=== PATIENT | male | born 1965 | race Caucasian/White ===

== ENCOUNTER 2017-03-03 13:47 | Emergency (ER) | payer BC ==
--- NOTE | 2017-03-03 15:50 | DIAGNOSTIC IMAGING REPORT ---
PROCEDURE: XR FINGER - LEFT (thumb). INDICATION: TRAUMA/INJURY TECHNIQUE: Four views. COMPARISON: None. FINDINGS: Mild degenerative change of the left first metacarpal phalangeal joint and left first interphalangeal joint. The rest of the osseous structures and joint spaces are normal. IMPRESSION: 1. Mild degenerative changes of the left thumb.
--- NOTE | 2017-03-03 16:10 | ED NURSING NOTES ---
Clinical Report - Nurses [facility] [address] [place] [address] 03/03/2017 13:50 Patient: CHANTAL DICKERSON [facility]#: [id number] TRIAGE Triage time 13:51 Chris 11 2016. Acuity: LEVEL 3. Chief Complaint: INJURY TO LEFT HAND. INJURY TO THE LEFT THUMB WITH PARTIAL AMPUTATION. Alert. JODI COMA SCORE: [place] Coma Scale: 15- eyes open spontaneously (4); best verbal response- oriented x 4 (5); best motor response- obeys commands (6). --13:57 Issa Rush R.N. 13:58 03/03/17. BP: 126/72. HR: 88. RR: 16. O2 saturation: 97% on room air. Temp: 99.5 F (oral). Pain level now: 07/02. --14:02 Issa Rush R.N. Weight: 81.6 kg stated. Height/Length: 68 inches Per Patient. BMI: 27.4. --13:57 Issa Rush R.N. Medications Lovenox Subcutaneous 120, daily. --13:53 Issa Rush R.N. Medication/allergy information source: the patient. --13:57 Issa Rush R.N. Allergies No Known Drug Allergy. --13:53 Issa Rush R.N. History Arrived by private vehicle. Historian: patient. Accompanied by spouse. Primary physician (DILAN). ( (L) Thumb Laceration from a skill saw.). This occurred (about 20 minutes ago). He sustained a laceration. 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 PAST MEDICAL HX: Tetanus status: more than 5 years ago. SOCIAL HX: Former smoker. No alcohol use or drug use. No infectious disease exposure. ABUSE ASSESSMENT: No report of abuse. FALL RISK ASSESSMENT: Fall risk assessment completed. No fall risk identified. NUTRITIONAL RISK ASSESSMENT: The nutritional risk assessment revealed no deficiencies. FUNCTIONAL ASSESSMENT: Functional assessment: no impairments noted. LEARNING NEEDS ASSESSMENT: The learning needs assessment revealed no barriers. SKIN INTEGRITY ASSESSMENT: Skin integrity risk assessment completed. No skin integrity risk identified. --13:57 Issa Rush R.N. PROBLEMS: Prostate Cancer. Deep Vein Thrombosis. Viral Disease. --13:54 Issa Rush R.N. Interventions ID band on patient. To treatment room. --13:57 Issa Rush R.N. PHYSICAL ASSESSMENT Ambulatory to room. GENERAL / NEURO / PSYCH: Oriented X 4. Appears in pain. EXTREMITIES: Capillary refill is less than 2 seconds in the extremities. Neuro-vascular status intact to the extremity. Left hand: (L Thumb). SKIN: Skin is warm and dry. ( L Thumb Laceration). --14:03 Issa Rush R.N. NURSING PROGRESS NOTES Reassurance given. Patient identifiers checked. Call light placed in reach. Side rails up x 1. Bed placed in lowest position. Brakes of bed on. Patient ready for evaluation- chart flagged and PA notified. --14:03 Issa Rush R.N. Wound cleansed with sterile saline. --14:13 Houston Espinoza Tech1 Wound cleansed with sterile saline. ( Would cleansed again per patient's request.). --14:43 Houston Espinoza ER [employer] 14:45 03/03/2017 Site #1 started via IV in the right hand with an 22g angiocath, with aseptic technique and good blood return; one attempt. Blood drawn: rainbow set. Labeled in the presence of the patient and sent to the lab. Saline lock flushed with 1 mL saline. --14:59 Sandra Plummer R.N. 14:50 03/03/2017 Started bag #1 250 mL IV Fluids IV NS (Saline); at 100 mL/hr over 2 hour(s) via site #1 --15:24 Sandra Plummer R.N. 15:08 03/03/2017 Dilaudid (HYDROmorphone HCl PF) IVP 1 mg given over 1 minute(s) via site #1. IV patency established. IV site checked: no pain, redness, or swelling. IV flushed thoroughly pre- and post-medication administration. IVP given by RN. --15:21 Sandra Plummer R.N. 15:10 03/03/2017 ancef * IVPB 1Gm Running 1 gram x 2 seperate bags for total of 2Gm --15:26 Sandra Plummer R.N. 15:33 03/03/2017 Ancef IVPB Bag Change: bag #1 infused. Total amount infused: 50. STARTED bag #2 (50 mL) at 150 mL/hr. IV patency established. IV site checked: no pain, redness, or swelling. IV flushed thoroughly. --15:33 Sandra Plummer R.N. 15:55 03/03/2017 Anc IVPB Discontinued: bag #2 infused. Total amount infused: 50 mL. IV patency established. IV site checked: no pain, redness, or swelling. IV flushed thoroughly. --15:57 Sandra Plummer R.N. late entry -16:00. WOUND REPAIR: Wound repair performed by PA. Assisted by one tech. The wound is located on the (lt thumb). The wound is linear. Preparation: suture tray set-up with lidocaine. Wound cleansed per PA with sterile saline and irrigated per PA with sterile saline using a syringe. Procedure: wound repaired with sutures (1 suture packet used). Total time of assist / procedure: 15 minutes. --19:33 Sandra Plummer R.N. 16:15. Applied clean dressing consisting of Tegaderm, following the application of antibiotic ointment (bacitracin). Secured with tape. --16:37 Doug Roland 16:15. Thumb spica fiberglass upper extremity splint applied to left hand by tech. Distal pulses intact, sensation intact and motor within normal limits. --16:38 Doug Roland 16:05 03/03/2017 Dilaudid (HYDROmorphone HCl PF) IVP 2 mg given over 1 minute(s) via site #1. IV patency established. IV site checked: no pain, redness, or swelling. IV flushed thoroughly pre- and post-medication administration. IVP given by RN. --19:38 Sandra Plummer R.N. 16:10 03/03/2017 Site #1 removed upon discharge. Bandaid applied. --19:40 Sandra Plummer R.N. 16:10 03/03/2017 IV Fluids IV NS Discontinued: bag #1 STOPPED. Total amount infused: 150 mL. IV patency established. IV site checked: no pain, redness, or swelling. IV flushed thoroughly. --19:39 Sandra Plummer R.N. 16:10 03/03/2017 IV Saline Lock Drip IV Discontinued. Total amount infused: 0 mL. IV patency established. IV site checked: no pain, redness, or swelling. IV flushed thoroughly. --19:39 Sandra Plummer R.N. DISPOSITION / DISCHARGE 16:20. Condition at departure: improved and stable. No learning barriers present. Discharge instructions provided and reviewed with the patient and spouse. Reviewed medication(s) (keflex, bactrim, percocet). Patient and spouse verbalized understanding. Written instructions provided in Dutch. The patient was discharged home and accompanied by spouse. He left the Emergency Department ambulatory and via private vehicle. Spouse driving. --19:37 Sandra Plummer R.N. 16:20 03/03/17. BP: 139/87. HR: 84. RR: 18. O2 saturation: 98%. Temp: deferred. Pain level now: 03/02. --19:37 Sandra Plummer R.N. 16:20. Reviewed wound care and splint care instructions. --19:37 Sandra Plummer R.N. Locked/Released at 03/03/2017 19:42 by Sandra Plummer R.N.
--- NOTE | 2017-03-03 16:10 | ED CLINICAL REPORT ---
Clinical Report - Physicians/Mid Levels [facility] [address] [place] [address] 03/03/2017 13:50 [id number] Time Seen: 14:00 Mar 03 2017. Arrived- By private vehicle. Historian- patient. HISTORY OF PRESENT ILLNESS Chief Complaint: Injury to the left thumb. The injury happened just prior to arrival. The patient sustained a laceration and crush injury. Occurred at home. Patient is experiencing moderate pain. Patient denies injury to the head or neck. ( left thumb laceration injured from a chainsaw prior to arrival. Patient is right-hand dominant no prior major injuries to the left thumb. Pain with movement. Denies loss of sensation. No active bleeding.). REVIEW OF SYSTEMS The patient sustained a laceration. He has had swelling, and weakness. All systems otherwise negative, except as recorded above. PAST HISTORY The patient's dominant hand is the right. He has not had a prior injury to the same area. Tetanus immunization status is up-to-date. Problems: Prostate Cancer. Deep Vein Thrombosis. Viral Disease. Additional Surgeries: Shoulder Surgery. Medications: Lovenox Subcutaneous 120, daily. Allergies: No Known Drug Allergy. SOCIAL HISTORY Former smoker. No alcohol use or drug use. ADDITIONAL NOTES The nursing notes have been reviewed. PHYSICAL EXAM Vital Signs: 03/03/2017 13:58 BP: 126/72. HR: 88. RR: 16. O2 saturation: 97%. Temp: 99.5 F. Pain level now: 1010. Appearance: Alert. Head: Head atraumatic. CVS: Normal heart rate and rhythm. Heart sounds normal. Respiratory: No respiratory distress. Breath sounds normal. Extremities: Anatomic snuffbox, right arm: No tenderness or swelling. Right thumb: subcutaneous 2.0 cm laceration of the dorsal aspect and proximal phalanx. Limited movement secondary to weakness (diminished extension). No puncture wound or deformity. Not localized to the thumb tip. No subungual hematoma or amputation present. Tip of right thumb. No tenderness or swelling. No wrist injury. Neuro, Vascular and Tendons: Vascular status intact. Functional tendon deficit. Neuro: Oriented X 3. LABS, X-RAYS, AND EKG Lt UE Digits X-ray: (IMPRESSION: 1. Mild degenerative changes of the left thumb. Electronically Final signed by:Jalen Paez MD 03/03/2017 3:45:09 PM). PROGRESS AND PROCEDURES PROCEDURES (Left thumb spica: 15:30, ns intact, fiberglass, short.). Laceration Repair: Time: 1515. Location: (left thumb). Time-out completed immediately before the procedure. Length: 3. Complexity: simple (local anesthesia used and sutured). Wound involving fascia. Wound is clean. Neuro/vascular/tendon status: motor deficit present distally. Tendon deficit present. Tendon injury and laceration present. No vascular deficit distally. Anesthesia provided by digital block using 0.25% Marcaine. Prepped with Betadine. Wound explored, cleansed and irrigated. Subcutaneous closure: interrupted 5-0 (3 non absorb). Post-procedure: he is stable and there are no complications. Bleeding is controlled and neuro-vascular status is intact distal to the wound. Dressing applied. Tetanus immunization up-to-date. Course of Care: Discussed case with DR. Noel, ortho, who prefers patient see specialized hand Attempted to phone patricia velasquez hand surgeon [employer]. Discussed case with DR. French, inspector [employer] plastics/ hand will see patient in office. Pt given 2 gm IV ancef and outpatient keflex/ bactrim. Pt with no signs of acute infection, however is on chemo, as well as opne wound with tendon laceration. 03/03/2017 13:58 BP: 126/72. HR: 88. RR: 16. O2 saturation: 97%. Temp: 99.5 F. Pain level now: 1010. Patient is stable. The patient's symptoms are unchanged. Patient/family counseled. Disposition: Discharged. CLINICAL IMPRESSION Complete tendon laceration of the left extensor of the thumb. No infection present or foreign body present. INSTRUCTIONS Apply ice. Elevate affected areas above chest level. Protect wound and keep wound area clean. (Leave splint in place). Limit use of your left hand (LIGHT DUTY UNTIL RELEASED). (Call DR. French on Saturday first [phone]). Prescription Medications: Cephalexin 500 mg: take 1 capsule orally every 8 hours for 10 days. No refill. Oxycodone/APAP 5 mg/325 mg: take 1 tablet orally every 6 hours as needed for pain. Dispense twenty (20). Bactrim take 1 tablet orally every 12 hours for 10 days. No refill. Substitution is not permissible. (Bactrim DS, GENERIC OK) Follow-up: Follow up with a specialist. Understanding of the discharge instructions verbalized by patient. (Electronically signed by Savana Christine P.A.-C 03/03/2017 19:22)
--- NOTE | 2017-03-03 16:10 | ED ORDER SUMMARY ---
..... Patient: CHANTAL DICKERSON OrderSheet [facility] VisitID: [id number] [place] [address] 51y, M Registration Date/Time: 03/03/2017 ORDER SHEET Weight: 81.6 kg (stated) Allergies: No Known Drug Allergy GENERAL ORDERS: Finger Left (1) Urgent (13:59 03/03/2017 EKoroleva P.A.-C) (Ack 14:00 KHoerner) (14:18 KHoerner) Splint (UE) (Left) (Thumb Spica) (15:15 03/03/2017 EKoroleva P.A.-C) (19:40 DDean R.N.) MEDICATION ORDERS: IV FLUIDS: IV Saline Lock (13:59 03/03/2017 EKoroleva P.A.-C) (Ack 15:02 DDean R.N.) (15:25 DDean R.N.) Ancef IV 2 gm/100mL (NOW) (14:28 03/03/2017 EKoroleva P.A.-C) (Ack 15:02 DDean R.N.) (15:26 DDean R.N.) Dilaudid IV 1 mg (HIGH ALERT MEDICATION, NOW) (15:06 03/03/2017 EKoroleva P.A.-C) (15:21 DDean R.N.) IV NS : initial bolus none -, then 100 for X2 (250cc bag, at 100cc/hr) (15:22 03/03/2017 DDean R.N. verbal order read back to EKoroleva P.A.-C) (15:24 DDean R.N.) Dilaudid IV 2 mg (HIGH ALERT MEDICATION, NOW) (16:02 03/03/2017 EKoroleva P.A.-C) (19:38 DDean R.N.) ORDER SHEET NOTES: [Electronically signed by Savana Christine PRahARah-C (19:22 03/03/2017)] [Electronically signed by Sandra Plummer R.N. (19:42 03/03/2017)] [Electronically locked/signed by Sandra Plummer R.N. (19:42 03/03/2017)]
--- NOTE | 2017-03-03 16:10 | ED ORDER SUMMARY ---
..... Patient: CHANTAL DICKERSON OrderSheet [facility] VisitID: [id number] [place] [address] 51y, M Registration Date/Time: 03/03/2017 ORDER SHEET Weight: 81.6 kg (stated) Allergies: No Known Drug Allergy GENERAL ORDERS: Finger Left (1) Urgent (13:59 03/03/2017 EKoroleva P.A.-C) (Ack 14:00 KHoerner) (14:18 KHoerner) Splint (UE) (Left) (Thumb Spica) (15:15 03/03/2017 EKoroleva P.A.-C) (19:40 DDean R.N.) MEDICATION ORDERS: IV FLUIDS: IV Saline Lock (13:59 03/03/2017 EKoroleva P.A.-C) (Ack 15:02 DDean R.N.) (15:25 DDean R.N.) Ancef IV 2 gm/100mL (NOW) (14:28 03/03/2017 EKoroleva P.A.-C) (Ack 15:02 DDean R.N.) (15:26 DDean R.N.) Dilaudid IV 1 mg (HIGH ALERT MEDICATION, NOW) (15:06 03/03/2017 EKoroleva P.A.-C) (15:21 DDean R.N.) IV NS : initial bolus none -, then 100 for X2 (250cc bag, at 100cc/hr) (15:22 03/03/2017 DDean R.N. verbal order read back to EKoroleva P.A.-C) (15:24 DDean R.N.) Dilaudid IV 2 mg (HIGH ALERT MEDICATION, NOW) (16:02 03/03/2017 EKoroleva P.A.-C) (19:38 DDean R.N.) ORDER SHEET NOTES: [Electronically signed by Savana Christine PaRhARah-C (19:22 03/03/2017)] [Electronically signed by Sandra Plummer R.N. (19:42 03/03/2017)] [Electronically locked/signed by Sandra Plummer R.N. (19:42 03/03/2017)]
--- NOTE | 2017-03-03 16:10 | ED CLINICAL REPORT ---
Clinical Report - Physicians/Mid Levels [facility] [address] [place] [address] 03/03/2017 13:50 [id number] Time Seen: 14:00 Mar 03 2017. Arrived- By private vehicle. Historian- patient. HISTORY OF PRESENT ILLNESS Chief Complaint: Injury to the left thumb. The injury happened just prior to arrival. The patient sustained a laceration and crush injury. Occurred at home. Patient is experiencing moderate pain. Patient denies injury to the head or neck. ( left thumb laceration injured from a chainsaw prior to arrival. Patient is right-hand dominant no prior major injuries to the left thumb. Pain with movement. Denies loss of sensation. No active bleeding.). REVIEW OF SYSTEMS The patient sustained a laceration. He has had swelling, and weakness. All systems otherwise negative, except as recorded above. PAST HISTORY The patient's dominant hand is the right. He has not had a prior injury to the same area. Tetanus immunization status is up-to-date. Problems: Prostate Cancer. Deep Vein Thrombosis. Viral Disease. Additional Surgeries: Shoulder Surgery. Medications: Lovenox Subcutaneous 120, daily. Allergies: No Known Drug Allergy. SOCIAL HISTORY Former smoker. No alcohol use or drug use. ADDITIONAL NOTES The nursing notes have been reviewed. PHYSICAL EXAM Vital Signs: 03/03/2017 13:58 BP: 126/72. HR: 88. RR: 16. O2 saturation: 97%. Temp: 99.5 F. Pain level now: 1010. Appearance: Alert. Head: Head atraumatic. CVS: Normal heart rate and rhythm. Heart sounds normal. Respiratory: No respiratory distress. Breath sounds normal. Extremities: Anatomic snuffbox, right arm: No tenderness or swelling. Right thumb: subcutaneous 2.0 cm laceration of the dorsal aspect and proximal phalanx. Limited movement secondary to weakness (diminished extension). No puncture wound or deformity. Not localized to the thumb tip. No subungual hematoma or amputation present. Tip of right thumb. No tenderness or swelling. No wrist injury. Neuro, Vascular and Tendons: Vascular status intact. Functional tendon deficit. Neuro: Oriented X 3. LABS, X-RAYS, AND EKG Lt UE Digits X-ray: (IMPRESSION: 1. Mild degenerative changes of the left thumb. Electronically Final signed by:Jalen Paez MD 03/03/2017 3:45:09 PM). PROGRESS AND PROCEDURES PROCEDURES (Left thumb spica: 15:30, ns intact, fiberglass, short.). Laceration Repair: Time: 1515. Location: (left thumb). Time-out completed immediately before the procedure. Length: 3. Complexity: simple (local anesthesia used and sutured). Wound involving fascia. Wound is clean. Neuro/vascular/tendon status: motor deficit present distally. Tendon deficit present. Tendon injury and laceration present. No vascular deficit distally. Anesthesia provided by digital block using 0.25% Marcaine. Prepped with Betadine. Wound explored, cleansed and irrigated. Subcutaneous closure: interrupted 5-0 (3 non absorb). Post-procedure: he is stable and there are no complications. Bleeding is controlled and neuro-vascular status is intact distal to the wound. Dressing applied. Tetanus immunization up-to-date. Course of Care: Discussed case with DR. Noel, ortho, who prefers patient see specialized hand Attempted to phone patricia velasquez hand surgeon [employer]. Discussed case with DR. French, [employer] plastics/ hand will see patient in office. Pt given 2 gm IV ancef and outpatient keflex/ bactrim. Pt with no signs of acute infection, however is on chemo, as well as opne wound with tendon laceration. 03/03/2017 13:58 BP: 126/72. HR: 88. RR: 16. O2 saturation: 97%. Temp: 99.5 F. Pain level now: 1010. Patient is stable. The patient's symptoms are unchanged. Patient/family counseled. Disposition: Discharged. CLINICAL IMPRESSION Complete tendon laceration of the left extensor of the thumb. No infection present or foreign body present. INSTRUCTIONS Apply ice. Elevate affected areas above chest level. Protect wound and keep wound area clean. (Leave splint in place). Limit use of your left hand (LIGHT DUTY UNTIL RELEASED). (Call DR. French on Saturday first [phone]). Prescription Medications: Cephalexin 500 mg: take 1 capsule orally every 8 hours for 10 days. No refill. Oxycodone/APAP 5 mg/325 mg: take 1 tablet orally every 6 hours as needed for pain. Dispense twenty (20). Bactrim take 1 tablet orally every 12 hours for 10 days. No refill. Substitution is not permissible. (Bactrim DS, GENERIC OK) Follow-up: Follow up with a specialist. Understanding of the discharge instructions verbalized by patient. (Electronically signed by Savana Christine P.A.-C 03/03/2017 19:22)
--- NOTE | 2017-03-03 16:10 | ED NURSING NOTES ---
Clinical Report - Nurses [facility] [address] [place] [address] 03/03/2017 13:50 Patient: CHANTAL DICKERSON [facility]#: [id number] TRIAGE Triage time 13:51 Chris 11 2016. Acuity: LEVEL 3. Chief Complaint: INJURY TO LEFT HAND. INJURY TO THE LEFT THUMB WITH PARTIAL AMPUTATION. Alert. JODI COMA SCORE: [place] Coma Scale: 15- eyes open spontaneously (4); best verbal response- oriented x 4 (5); best motor response- obeys commands (6). --13:57 Issa Rush R.N. 13:58 03/03/17. BP: 126/72. HR: 88. RR: 16. O2 saturation: 97% on room air. Temp: 99.5 F (oral). Pain level now: 07/02. --14:02 Issa Rush R.N. Weight: 81.6 kg stated. Height/Length: 68 inches Per Patient. BMI: 27.4. --13:57 Issa Rush R.N. Medications Lovenox Subcutaneous 120, daily. --13:53 Issa Rush R.N. Medication/allergy information source: the patient. --13:57 Issa Rush R.N. Allergies No Known Drug Allergy. --13:53 Issa Rush R.N. History Arrived by private vehicle. Historian: patient. Accompanied by spouse. Primary physician (DILAN). ( (L) Thumb Laceration from a skill saw.). This occurred (about 20 minutes ago). He sustained a laceration. 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 PAST MEDICAL HX: Tetanus status: more than 5 years ago. SOCIAL HX: Former smoker. No alcohol use or drug use. No infectious disease exposure. ABUSE ASSESSMENT: No report of abuse. FALL RISK ASSESSMENT: Fall risk assessment completed. No fall risk identified. NUTRITIONAL RISK ASSESSMENT: The nutritional risk assessment revealed no deficiencies. FUNCTIONAL ASSESSMENT: Functional assessment: no impairments noted. LEARNING NEEDS ASSESSMENT: The learning needs assessment revealed no barriers. SKIN INTEGRITY ASSESSMENT: Skin integrity risk assessment completed. No skin integrity risk identified. --13:57 Issa Rush R.N. PROBLEMS: Prostate Cancer. Deep Vein Thrombosis. Viral Disease. --13:54 Issa Rush R.N. Interventions ID band on patient. To treatment room. --13:57 Issa Rush R.N. PHYSICAL ASSESSMENT Ambulatory to room. GENERAL / NEURO / PSYCH: Oriented X 4. Appears in pain. EXTREMITIES: Capillary refill is less than 2 seconds in the extremities. Neuro-vascular status intact to the extremity. Left hand: (L Thumb). SKIN: Skin is warm and dry. ( L Thumb Laceration). --14:03 Issa Rush R.N. NURSING PROGRESS NOTES Reassurance given. Patient identifiers checked. Call light placed in reach. Side rails up x 1. Bed placed in lowest position. Brakes of bed on. Patient ready for evaluation- chart flagged and PA notified. --14:03 Issa Rush R.N. Wound cleansed with sterile saline. --14:13 Houston Espinoza Tech1 Wound cleansed with sterile saline. ( Would cleansed again per patient's request.). --14:43 Houston Espinoza ER TechGeoloqi 14:45 03/03/2017 Site #1 started via IV in the right hand with an 22g angiocath, with aseptic technique and good blood return; one attempt. Blood drawn: rainbow set. Labeled in the presence of the patient and sent to the lab. Saline lock flushed with 1 mL saline. --14:59 Sandra Plummer R.N. 14:50 03/03/2017 Started bag #1 250 mL IV Fluids IV NS (Saline); at 100 mL/hr over 2 hour(s) via site #1 --15:24 Sandra Plummer R.N. 15:08 03/03/2017 Dilaudid (HYDROmorphone HCl PF) IVP 1 mg given over 1 minute(s) via site #1. IV patency established. IV site checked: no pain, redness, or swelling. IV flushed thoroughly pre- and post-medication administration. IVP given by RN. --15:21 Sandra Plummer R.N. 15:10 03/03/2017 ancef * IVPB 1Gm Running 1 gram x 2 seperate bags for total of 2Gm --15:26 Sandra Plummer R.N. 15:33 03/03/2017 Ancef IVPB Bag Change: bag #1 infused. Total amount infused: 50. STARTED bag #2 (50 mL) at 150 mL/hr. IV patency established. IV site checked: no pain, redness, or swelling. IV flushed thoroughly. --15:33 Sandra Plummer R.N. 15:55 03/03/2017 Anc IVPB Discontinued: bag #2 infused. Total amount infused: 50 mL. IV patency established. IV site checked: no pain, redness, or swelling. IV flushed thoroughly. --15:57 Sandra Plummer R.N. late entry -16:00. WOUND REPAIR: Wound repair performed by PA. Assisted by one tech. The wound is located on the (lt thumb). The wound is linear. Preparation: suture tray set-up with lidocaine. Wound cleansed per PA with sterile saline and irrigated per PA with sterile saline using a syringe. Procedure: wound repaired with sutures (1 suture packet used). Total time of assist / procedure: 15 minutes. --19:33 Sandra Plummer R.N. 16:15. Applied clean dressing consisting of Tegaderm, following the application of antibiotic ointment (bacitracin). Secured with tape. --16:37 Doug Roland 16:15. Thumb spica fiberglass upper extremity splint applied to left hand by tech. Distal pulses intact, sensation intact and motor within normal limits. --16:38 Doug Roland 16:05 03/03/2017 Dilaudid (HYDROmorphone HCl PF) IVP 2 mg given over 1 minute(s) via site #1. IV patency established. IV site checked: no pain, redness, or swelling. IV flushed thoroughly pre- and post-medication administration. IVP given by RN. --19:38 Sandra Plummer R.N. 16:10 03/03/2017 Site #1 removed upon discharge. Bandaid applied. --19:40 Sandra Plummer R.N. 16:10 03/03/2017 IV Fluids IV NS Discontinued: bag #1 STOPPED. Total amount infused: 150 mL. IV patency established. IV site checked: no pain, redness, or swelling. IV flushed thoroughly. --19:39 Sandra Plummer R.N. 16:10 03/03/2017 IV Saline Lock Drip IV Discontinued. Total amount infused: 0 mL. IV patency established. IV site checked: no pain, redness, or swelling. IV flushed thoroughly. --19:39 Sandra Plummer R.N. DISPOSITION / DISCHARGE 16:20. Condition at departure: improved and stable. No learning barriers present. Discharge instructions provided and reviewed with the patient and spouse. Reviewed medication(s) (keflex, bactrim, percocet). Patient and spouse verbalized understanding. Written instructions provided in [place]. The patient was discharged home and accompanied by spouse. He left the Emergency Department ambulatory and via private vehicle. Spouse driving. --19:37 Sandra Plummer R.N. 16:20 03/03/17. BP: 139/87. HR: 84. RR: 18. O2 saturation: 98%. Temp: deferred. Pain level now: 03/02. --19:37 Sandra Plummer R.N. 16:20. Reviewed wound care and splint care instructions. --19:37 Sandra Plummer R.N. Locked/Released at 03/03/2017 19:42 by Sandra Plummer R.N.
--- NOTE | 2017-03-03 19:42 | ED MAR SUMMARY ---
..... Medication Administration Record [facility] [address] [place] [address] Patient: CHANTAL DICKERSON Visit ID: [id number] 51y, M Weight: 81.6 kg Height/Length: 68 in BMI: 27.4 ALLERGIES: No Known Drug Allergy Start 14:50 03/03/2017 Sandra Plummer R.N., Stop 16:10 03/03/2017 Sandra Plummer R.N. Medication Administered: IV NS (SALINE), Dose: IV Fluids over 2 hour(s), Rate: 100 mL/hr, Dispensed: 250 mL bag, Site: #1 right hand. Medication Ordered: IV NS : initial bolus none -, then 100 for X2 (250cc bag, at 100cc/hr). Given 15:08 03/03/2017 Sandra Plummer R.N. Medication Administered: DILAUDID [IVP] (HYDROMORPHONE HCL PF), Dose: 1 mg IVP over 1 minute(s), Site: #1 right hand. Medication Ordered: Dilaudid IV 1 mg (HIGH ALERT MEDICATION, NOW). Start 15:10 03/03/2017 Sandra Plummer R.N., Stop 15:55 03/03/2017 Sandra Plummer R.N. Medication Administered: ancef *, Dose: 1Gm * IVPB. Medication Ordered: Ancef IV 2 gm/100mL (NOW). Given 16:05 03/03/2017 Sandra Plummer R.N. Medication Administered: DILAUDID [IVP] (HYDROMORPHONE HCL PF), Dose: 2 mg IVP over 1 minute(s), Site: #1 right hand. Medication Ordered: Dilaudid IV 2 mg (HIGH ALERT MEDICATION, NOW).
--- NOTE | 2017-03-03 19:42 | ED MED RECONCILIATION SUMMARY ---
Patient: CHANTAL DICKERSON Medication Reconciliation Report [facility] VisitID: [id number] [address] [place] [address] 51y, M Registration Date/Time: 03/03/2017 Weight: 81.6 kg Height/Length: 68 in. BMI: 27.4 ALLERGIES: No Known Drug Allergy The patient's Home Medications are listed below: THE FOLLOWING MEDICATIONS NEED TO BE RECONCILED: Lovenox Subcutaneous 120, daily The source(s) of the original Home Medication information: patient The following Medications were given to the patient in the Emergency Department: Dilaudid [IVP] IVP 1 mg, administered: 03/03/2017 3:08:00 PM IV NS IV Fluids bolus 0, then 100 mL/hr, administered: 03/03/2017 2:50:00 PM ancef IVPB bolus 0, then 1Gm, administered: 03/03/2017 3:10:00 PM Dilaudid [IVP] IVP 2 mg, administered: 03/03/2017 4:05:00 PM The following Medications were prescribed to the patient: Cephalexin 500 mg: take 1 capsule orally every 8 hours for 10 days. No refill. -- Savana Christine P.ARah-Bob Oxycodone/APAP 5 mg/325 mg: take 1 tablet orally every 6 hours as needed for pain. Dispense twenty (20). -- Savana Christine P.ARah-Bob Bactrim take 1 tablet orally every 12 hours for 10 days. No refill. Substitution is not permissible.(Bactrim DS, GENERIC OK) -- Savana Christine P.ARah-C
--- NOTE | 2017-03-03 19:42 | ED MED RECONCILIATION SUMMARY ---
Patient: CHANTAL DICKERSON Medication Reconciliation Report [facility] VisitID: [id number] [address] [place] [address] 51y, M Registration Date/Time: 03/03/2017 Weight: 81.6 kg Height/Length: 68 in. BMI: 27.4 ALLERGIES: No Known Drug Allergy The patient's Home Medications are listed below: THE FOLLOWING MEDICATIONS NEED TO BE RECONCILED: Lovenox Subcutaneous 120, daily The source(s) of the original Home Medication information: patient The following Medications were given to the patient in the Emergency Department: Dilaudid [IVP] IVP 1 mg, administered: 03/03/2017 3:08:00 PM IV NS IV Fluids bolus 0, then 100 mL/hr, administered: 03/03/2017 2:50:00 PM ancef IVPB bolus 0, then 1Gm, administered: 03/03/2017 3:10:00 PM Dilaudid [IVP] IVP 2 mg, administered: 03/03/2017 4:05:00 PM The following Medications were prescribed to the patient: Cephalexin 500 mg: take 1 capsule orally every 8 hours for 10 days. No refill. -- Savana Christine P.ARah-Bob Oxycodone/APAP 5 mg/325 mg: take 1 tablet orally every 6 hours as needed for pain. Dispense twenty (20). -- Savana Christine P.ARah-Bob Bactrim take 1 tablet orally every 12 hours for 10 days. No refill. Substitution is not permissible.(Bactrim DS, GENERIC OK) -- Savana Christine P.ARah-C
--- NOTE | 2017-03-03 19:42 | ED DISCHARGE INSTRUCTIONS ---
Patient: CHANTAL DICKERSON General Instructions [facility] VisitID: [id number] [place] [address] 51y, M Registration Date/Time: 03/03/2017 Complete tendon laceration of the left extensor of the thumb. No infection present or foreign body present. INSTRUCTIONS Apply ice. Elevate affected areas above chest level. Protect wound and keep wound area clean. (Leave splint in place). Limit use of your left hand (LIGHT DUTY UNTIL RELEASED). (Call DR. French on Saturday first [phone]). Prescription Medications: Cephalexin 500 mg: take 1 capsule orally every 8 hours for 10 days. No refill. Oxycodone/APAP 5 mg/325 mg: take 1 tablet orally every 6 hours as needed for pain. Dispense twenty (20). Bactrim take 1 tablet orally every 12 hours for 10 days. No refill. Substitution is not permissible. (Bactrim DS, GENERIC OK) Follow-up: Follow up with a specialist. Understanding of the discharge instructions verbalized by patient. ADDITIONAL INFORMATION Laceration, Tendon A tendon is a thick cord that joins muscle to bone and causes the joints to bend and straighten. One of your tendons has been cut. A tendon cut may be partial or complete. A complete cut of the tendon and a severe partial cut will need stitches (sutures) in the tendon. Smaller cuts in the tendon do not require stitches; however, the cut in the skin will need to be closed with stitches or key. A cut tendon takes about 6 weeks to regain its full strength. Forceful use of the tendon too soon could cause the weakened tendon to tear apart. Antibiotics may be prescribed to reduce the risk of infection in the tendon. Some tendons are located close to the nerves, therefore, it is possible to bruise or cut a nerve when you injure a tendon. This may cause numbness or weakness of the hand or foot. Because of local pain and swelling at the time of injury it can be difficult to fully assess nerve function. If you notice numbness or weakness that persists, notify your doctor. A nerve repair can be done 5-10 days after injury. Home Care: Keep the injured part elevated during the first 48 hours to reduce swelling and pain. If a splint was applied, leave it in place until your next exam (unless told otherwise). Keep the part dry when bathing by covering it in a plastic bag sealed with a rubber band at the top end. If no splint was applied, you may change the bandage after 24 hours and begin cleaning the wound once a day with soap and water. After removing the bandage, wash the area with soap and water. Use a wet cotton swab (Q tip) to loosen and remove any blood or crust that forms.After cleaning, apply a thin layer of [id number] antibiotic ointment. This will keep the wound clean and make it easier to remove the stitches or key. Reapply a fresh bandage. You may remove the bandage to shower as usual after the first 24 hours, but do not soak the area in water (no swimming) until the stitches or key are removed. If antibiotics were prescribed, take them until they are gone. You may use acetaminophen (Tylenol) or ibuprofen (Motrin, Advil) to control pain, unless another pain medicine was prescribed. [ NOTE : If you have chronic liver or kidney disease or ever had a stomach ulcer or GI bleeding, talk with your doctor before using these medicines.] Follow Up: Most skin wounds heal within ten days. However, an infection may sometimes occur despite proper treatment. Therefore, check your wound daily f or the warning signs listed below. Stitches placed in the tendon will not need to be removed. Stitches or key placed in the skin will be removed in 7-10 days. Be sure to keep your appointment for removal. At your follow up visit, talk to your doctor about when to begin exercising the tendon in order to prevent stiffness. Notify your doctor if you notice persistent numbness or weakness in the injured extremity.We will notify you of any new findings that may affect your care. Get Prompt Medical Attention If Any Of The Following Occur: Increasing pain in the wound Redness, swelling or pus coming from the wound Fever of 100.4F (38C) or higher, or as directed by your healthcare provider Stitches or key come apart or fall out before your next appointment Bleeding is not controlled by direct pressure Cephalexin Monohydrate Oral tablet What is this medicine? CEPHALEXIN (sef a NITZA in) is a cephalosporin antibiotic. It is used to treat certain kinds of bacterial infections It will not work for colds, flu, or other viral infections. How should I use this medicine? Take this medicine by mouth with a full glass of water. Follow the directions on the prescription label. This medicine can be taken with or without food. Take your medicine at regular intervals. Do not take your medicine more often than directed. Take all of your medicine as directed even if you think you are better. Do not skip doses or stop your medicine early. Talk to your levers lace machine operator regarding the use of this medicine in children. While this drug may be prescribed for selected conditions, precautions do apply. What side effects may I notice from receiving this medicine? Side effects that you should report to your doctor or health personal care home administrator as soon as possible: allergic reactions like skin rash, itching or hives, swelling of the face, lips, or tongue breathing problems pain or trouble passing urine redness, blistering, peeling or loosening of the skin, including inside the mouth severe or watery diarrhea unusually weak or tired yellowing of the eyes, skin Side effects that usually do not require medical attention (report to your doctor or health personal care home administrator if they continue or are bothersome): gas or heartburn genital or anal irritation headache joint or muscle pain nausea, vomiting What may interact with this medicine? probenecid some other antibiotics What if I miss a dose? If you miss a dose, take it as soon as you can. If it is almost time for your next dose, take only that dose. Do not take double or extra doses. There should be at least 4 to 6 hours between doses. Where should I keep my medicine? Keep out of the reach of children. Store at room temperature between 59 and 86 degrees F (15 and 30 degrees C). Throw away any unused medicine after the expiration date. What should I tell my health care provider before I take this medicine? They need to know if you have any of these conditions: kidney disease stomach or intestine problems, especially colitis an unusual or allergic reaction to cephalexin, other cephalosporins, penicillins, other antibiotics, medicines, foods, dyes or preservatives or trying to get breast-feeding What should I watch for while using this medicine? Tell your doctor or health personal care home administrator if your symptoms do not begin to improve in a few days. Do not treat diarrhea with over the counter products. Contact your doctor if you have diarrhea that lasts more than 2 days or if it is severe and watery. If you have diabetes, you may get a false-positive result for sugar in your urine. Check with your doctor or health personal care home administrator. Oxycodone Hydrochloride, Acetaminophen Oral tablet What is this medicine? ACETAMINOPHEN; OXYCODONE (a set a CHALINO morales fen; ox i KOE done) is a pain reliever. It is used to treat mild to moderate pain. How should I use this medicine? Take this medicine by mouth with a full glass of water. Follow the directions on the prescription label. Take your medicine at regular intervals. Do not take your medicine more often than directed. Talk to your levers lace machine operator regarding the use of this medicine in children. Special care may be needed. Patients over 65 years old may have a stronger reaction and need a smaller dose. What side effects may I notice from receiving this medicine? Side effects that you should report to your doctor or health personal care home administrator as soon as possible: allergic reactions like skin rash, itching or hives, swelling of the face, lips, or tongue breathing difficulties, wheezing confusion light headedness or fainting spells severe stomach pain yellowing of the skin or the whites of the eyes Side effects that usually do not require medical attention (report to your doctor or health personal care home administrator if they continue or are bothersome): dizziness drowsiness nausea vomiting What may interact with this medicine? alcohol antihistamines barbiturates like amobarbital, butalbital, butabarbital, methohexital, pentobarbital, phenobarbital, thiopental, and secobarbital benztropine drugs for bladder problems like solifenacin, trospium, oxybutynin, tolterodine, hyoscyamine, and methscopolamine drugs for breathing problems like ipratropium and tiotropium drugs for certain stomach or intestine problems like propantheline, homatropine methylbromide, glycopyrrolate, atropine, belladonna, and dicyclomine general anesthetics like etomidate, ketamine, nitrous oxide, propofol, desflurane, enflurane, halothane, isoflurane, and sevoflurane medicines for depression, anxiety, or psychotic disturbances medicines for sleep muscle relaxants naltrexone narcotic medicines (opiates) for pain phenothiazines like perphenazine, thioridazine, chlorpromazine, mesoridazine, fluphenazine, prochlorperazine, promazine, and trifluoperazine scopolamine tramadol trihexyphenidyl What if I miss a dose? If you miss a dose, take it as soon as you can. If it is almost time for your next dose, take only that dose. Do not take double or extra doses. Where should I keep my medicine? Keep out of the reach of children. This medicine can be abused. Keep your medicine in a safe place to protect it from theft. Do not share this medicine with anyone. Selling or giving away this medicine is dangerous and against the law. Store at room temperature between 20 and 25 degrees C (68 and 77 degrees F). Keep container tightly closed. Protect from light. This medicine may cause accidental overdose and if it is taken by other adults, children, or pets. Flush any unused medicine down the toilet to reduce the chance of harm. Do not use the medicine after the expiration date. What should I tell my health care provider before I take this medicine? They need to know if you have any of these conditions: brain tumor Crohn's disease, inflammatory bowel disease, or ulcerative colitis drink more than 3 alcohol containing drinks per day drug abuse or addiction head injury heart or circulation problems kidney disease or problems going to the bathroom liver disease lung disease, asthma, or breathing problems an unusual or allergic reaction to acetaminophen, oxycodone, other opioid analgesics, other medicines, foods, dyes, or preservatives or trying to get breast-feeding What should I watch for while using this medicine? Tell your doctor or health personal care home administrator if your pain does not go away, if it gets worse, or if you have new or a different type of pain. You may develop tolerance to the medicine. Tolerance means that you will need a higher dose of the medication for pain relief. Tolerance is normal and is expected if you take this medicine for a long time. Do not suddenly stop taking your medicine because you may develop a severe reaction. Your body becomes used to the medicine. This does NOT mean you are addicted. Addiction is a behavior related to getting and using a drug for a non-medical reason. If you have pain, you have a medical reason to take pain medicine. Your doctor will tell you how much medicine to take. If your doctor wants you to stop the medicine, the dose will be slowly lowered over time to avoid any side effects. You may get drowsy or dizzy. Do not drive, use machinery, or do anything that needs mental alertness until you know how this medicine affects you. Do not stand or sit up quickly, especially if you are an older patient. This reduces the risk of dizzy or fainting spells. Alcohol may interfere with the effect of this medicine. Avoid alcoholic drinks. There are different types of narcotic medicines (opiates) for pain. If you take more than one type at the same time, you may have more side effects. Give your health care provider a list of all medicines you use. Your doctor will tell you how much medicine to take. Do not take more medicine than directed. Call emergency for help if you have problems breathing. The medicine will cause constipation. Try to have a bowel movement at least every 2 to 3 days. If you do not have a bowel movement for 3 days, call your doctor or health personal care home administrator. Do not take Tylenol (acetaminophen) or medicines that have acetaminophen with this medicine. Too much acetaminophen can be very dangerous. Many nonprescription medicines contain acetaminophen. Always read the labels carefully to avoid taking more acetaminophen. Sulfamethoxazole, Trimethoprim Oral tablet What is this medicine? SULFAMETHOXAZOLE; TRIMETHOPRIM or SMX-TMP (suhl fuh meth OK mikey zohl; trye METH oh prim) is a combination of a sulfonamide antibiotic and a second antibiotic, trimethoprim. It is used to treat or prevent certain kinds of bacterial infections. It will not work for colds, flu, or other viral infections. How should I use this medicine? Take this medicine by mouth with a full glass of water. Follow the directions on the prescription label. Take your medicine at regular intervals. Do not take it more often than directed. Do not skip doses or stop your medicine early. Talk to your levers lace machine operator regarding the use of this medicine in children. Special care may be needed. This medicine has been used in children as young as 2 months of age. What side effects may I notice from receiving this medicine? Side effects that you should report to your doctor or health personal care home administrator as soon as possible: allergic reactions like skin rash or hives, swelling of the face, lips, or tongue breathing problems fever or chills, sore throat irregular heartbeat, chest pain joint or muscle pain pain or difficulty passing urine red pinpoint spots on skin redness, blistering, peeling or loosening of the skin, including inside the mouth unusual bleeding or bruising unusually weak or tired yellowing of the eyes or skin Side effects that usually do not require medical attention (report to your doctor or health personal care home administrator if they continue or are bothersome): diarrhea dizziness headache loss of appetite nausea, vomiting nervousness What may interact with this medicine? Do not take this medicine with any of the following medications: aminobenzoate potassium dofetilide metronidazole This medicine may also interact with the following medications: WILLIAMS inhibitors like benazepril, enalapril, lisinopril, and ramipril cyclosporine digoxin diuretics indomethacin medicines for diabetes methenamine methotrexate phenytoin potassium supplements pyrimethamine sulfinpyrazone tricyclic antidepressants warfarin What if I miss a dose? If you miss a dose, take it as soon as you can. If it is almost time for your next dose, take only that dose. Do not take double or extra doses. Where should I keep my medicine? Keep out of the reach of children. Store at room temperature between 20 to 25 degrees C (68 to 77 degrees F). Protect from light. Throw away any unused medicine after the expiration date. What should I tell my health care provider before I take this medicine? They need to know if you have any of these conditions: anemia asthma being treated with anticonvulsants if you frequently drink alcohol containing drinks kidney disease liver disease low level of folic acid or [id number] dehydrogenase poor nutrition or malabsorption porphyria severe allergies thyroid disorder an unusual or allergic reaction to sulfamethoxazole, trimethoprim, sulfa drugs, other medicines, foods, dyes, or preservatives or trying to get breast-feeding What should I watch for while using this medicine? Tell your doctor or health personal care home administrator if your symptoms do not improve. Drink several glasses of water a day to reduce the risk of kidney problems. Do not treat diarrhea with over the counter products. Contact your doctor if you have diarrhea that lasts more than 2 days or if it is severe and watery. This medicine can make you more sensitive to the sun. Keep out of the sun. If you cannot avoid being in the sun, wear protective clothing and use a sunscreen. Do not use sun lamps or tanning beds/booths. You have been given the following additional information: Laceration, Tendon Cephalexin Monohydrate Oral tablet Oxycodone Hydrochloride, Acetaminophen Oral tablet Sulfamethoxazole, Trimethoprim Oral tablet Limit use of your left hand (LIGHT DUTY UNTIL RELEASED). (Electronically signed by Savana Christine P.A.-C 03/03/2017 19:22)
--- NOTE | 2017-03-03 19:42 | ED MAR SUMMARY ---
..... Medication Administration Record [facility] [address] [place] [address] Patient: CHANTAL DICKERSON Visit ID: [id number] 51y, M Weight: 81.6 kg Height/Length: 68 in BMI: 27.4 ALLERGIES: No Known Drug Allergy Start 14:50 03/03/2017 Sandra Plummer R.N., Stop 16:10 03/03/2017 Sandra Plummer R.N. Medication Administered: IV NS (SALINE), Dose: IV Fluids over 2 hour(s), Rate: 100 mL/hr, Dispensed: 250 mL bag, Site: #1 right hand. Medication Ordered: IV NS : initial bolus none -, then 100 for X2 (250cc bag, at 100cc/hr). Given 15:08 03/03/2017 Sandra Plummer R.N. Medication Administered: DILAUDID [IVP] (HYDROMORPHONE HCL PF), Dose: 1 mg IVP over 1 minute(s), Site: #1 right hand. Medication Ordered: Dilaudid IV 1 mg (HIGH ALERT MEDICATION, NOW). Start 15:10 03/03/2017 Sandra Plummer R.N., Stop 15:55 03/03/2017 Sandra Plummer R.N. Medication Administered: ancef *, Dose: 1Gm * IVPB. Medication Ordered: Ancef IV 2 gm/100mL (NOW). Given 16:05 03/03/2017 Sandra Plummer R.N. Medication Administered: DILAUDID [IVP] (HYDROMORPHONE HCL PF), Dose: 2 mg IVP over 1 minute(s), Site: #1 right hand. Medication Ordered: Dilaudid IV 2 mg (HIGH ALERT MEDICATION, NOW).
== END 2017-03-03 16:20 | disposition home or self-care (01) ==
LOC: ED SRH 13:47
DX: S61.012A Laceration without foreign body of left thumb without damage to nail, initial encounter (principal); W31.2XXA Contact with powered woodworking and forming machines, initial encounter; Y93.89 Activity, other specified; Y99.9 Unspecified external cause status; Y92.009 Unspecified place in unspecified non-institutional (private) residence as the place of occurrence of the external cause; Z79.01 Long term (current) use of anticoagulants; Z87.891 Personal history of nicotine dependence; Z86.718 Personal history of other venous thrombosis and embolism